=== PATIENT | male | born 1960 | race Caucasian/White ===

== ENCOUNTER 2019-06-05 10:50 | Emergency (ER) | payer OTHER ==
[2019-06-05 13:39] LABS: ANION GAP 13.6; CHLORIDE,CL 100 mmol/L (101-111); SODIUM,NA 139 mmol/L (135-145)
[2019-06-05] MEDS ORDERED: Iopamidol 612 MG/ML 100 ML Bottle IVPUSH ONE (13:41)
--- NOTE | 2019-06-05 14:30 | PCM.PRNOTE ---
- Free Text/Narrative Note: Consulted by ED to insert an IV on a patient who has had multiple attempts by RN. Upon entering room, pt is lying on a stretcher but in abd pain. A tourniquet was applied to the left forearm. The left wrist was cleaned with alcohol. Using a 18 gauge angiocath, an IV was inserted into the left anterior wrist on first attempt. Excellent blood return. IV flushes without difficulty. IV was covered with tegaderm and secured with tape. RN was notified. Date and Time: 06/05/19 [id number]
--- NOTE | 2019-06-05 15:37 | EDM.PDOC ---
Scribed by Morenita Robison 06/05/19 1534 for Chai Phillips PA ED HPI GENERAL MEDICAL PROBLEM - General Chief Complaint: Abdominal Pain Stated Complaint: GALLBLADDER Time Seen by Provider: 06/05/19 13:15 Source of Information: Reports: Patient, RN, RN Notes Reviewed History Limitations: Reports: No Limitations - History of Present Illness INITIAL COMMENTS - FREE TEXT/NARRATIVE: Patient presents to ER from [facility] with right lower lateral abdominal pain with no labs. Patient states his pain started yesterday after examination. He has had no fever. Patient has a history of non-Hodgkin's lymphoma. He has had no abdominal surgeries. Onset Date: 06/04/19 Duration: Getting Worse Location: Reports: Abdomen Quality: Reports: Ache Severity: Moderate Improves with: Reports: None Worsens with: Reports: None Associated Symptoms: Reports: No Other Symptoms - Related Data Allergies Allergy/AdvReac Type Severity Reaction Status Date / Time No Known Allergies Allergy Verified 06/05/19 12:41 Home Meds: Home Meds Cholecalciferol (Vitamin D3) [Vitamin D] 5,000 unit PO DAILY 06/05/19 [History] Fish Oil/[place]-3 Fatty Acids [Fish Oil] 1 each PO DAILY 06/05/19 [History] oxyCODONE 5 mg PO Q6HR PRN 06/05/19 [History] oxyCODONE ER [OxyCONTIN] 10 mg PO Q12H PRN 06/05/19 [History] Past Medical History Oncologic (Cancer) History: Reports: Non-Hodgkin's Lymphoma Social & Family History - Family History Family Medical History: Noncontributory - Tobacco Use Smoking Status *Q: Never Smoker - Caffeine Use Caffeine Use: Reports: Coffee - Recreational Drug Use Recreational Drug Use: No ED ROS GENERAL - Review of Systems Review Of Systems: ROS reveals no pertinent complaints other than HPI. ED EXAM, GI/ABD - Physical Exam Exam: See Below Exam Limited By: No Limitations General Appearance: Alert, WD/WN, No Apparent Distress Eyes: Bilateral: Normal Appearance Ears: Normal External Exam, Normal Canal, Hearing Grossly Normal, Normal TMs Nose: Normal Inspection, Normal Mucosa, No Blood Throat/Mouth: Normal Inspection, Normal Lips, Normal Teeth, Normal Gums, Normal Oropharynx, Normal Voice, No Airway Compromise Head: Atraumatic, Normocephalic Neck: Normal Inspection, Supple, Non-Tender, Full Range of Motion Respiratory/Chest: No Respiratory Distress, Lungs Clear, Normal Breath Sounds, No Accessory Muscle Use, Chest Non-Tender Cardiovascular: Normal Peripheral Pulses, Regular Rate, Rhythm, No Edema, No Gallop, No JVD, No Murmur, No Rub GI/Abdominal Exam: Other (right lateral lower abdominal pain with palpation. Negative psoas.) (Male) Exam: Deferred Rectal (Males) Exam: Deferred Back Exam: Normal Inspection, Full Range of Motion, NT Extremities: Normal Inspection, Normal Range of Motion, Non-Tender, Normal Capillary Refill, No Pedal Edema Neurological: Alert, Oriented, CN II-XII Intact, Normal Cognition, Normal Gait, Normal Reflexes, No Motor/Sensory Deficits Psychiatric: Normal Affect, Normal Mood Skin Exam: Warm, Dry, Intact, Normal Color, No Rash Lymphatic: No Adenopathy Course - Vital Signs Last Recorded V/S: Last Vital Signs Temp 36.6 C 06/05/19 12:15 Pulse 92 06/05/19 12:15 Resp 16 06/05/19 12:15 BP 161/99 H 06/05/19 12:15 Pulse Ox 99 06/05/19 12:15 - Orders/Labs/Meds Labs: Laboratory Tests 06/05/19 06/05/19 06/05/19 Range/Units 13:02 13:02 13:24 WBC 12.3 H (5.0-10.0) 10^3/uL RBC 4.74 (4.6-6.2) 10^6/uL Hgb 16.5 (14.0-18.0) g/dL Hct 48.7 (40.0-54.0) % MCV 102.7 H (80-100) fL MCH 34.8 H (27.0-34.0) pg MCHC 33.9 (33.0-35.0) g/dL Plt Count 233 (150-450) 10^3/uL Neut % (Auto) 68.4 (42.2-75.2) % Lymph % (Auto) 20.2 L (20.5-50.1) % Keith % (Auto) 10.5 H (2-8) % Eos % (Auto) 0.7 L (1.0-3.0) % Baso % (Auto) 0.2 (0.0-1.0) % Sodium 139 (135-145) mmol/L Potassium 3.6 (3.6-5.0) mmol/L Chloride 100 L (101-111) mmol/L Carbon Dioxide 29.0 (21.0-31.0) mmol/L Anion Gap 13.6 BUN 10 (7-18) mg/dL Creatinine 1.0 (0.6-1.3) mg/dL Est Cr Clr Drug Dosing TNP Estimated GFR (MDRD) > 60 BUN/Creatinine Ratio 10.00 Glucose 107 H (74-105) mg/dL Calcium 8.9 (8.4-10.2) mg/dl Total Bilirubin 1.0 (0.2-1.0) mg/dL AST 25 (10-42) IU/L ALT 25 (10-60) IU/L Alkaline Phosphatase 67 (42-121) IU/L Total Protein 6.9 (6.7-8.2) g/dl Albumin 4.3 (3.2-5.5) g/dl Globulin 2.6 Albumin/Globulin Ratio 1.65 Amylase 60 (28-100) U/L Lipase 31 (22-51) U/L Urine Color Yellow (YELLOW) Urine Appearance Clear (CLEAR) Urine pH 7.0 (5.0-9.0) Ur Specific Dexter 1.020 (1.005-1.030) Urine Protein Negative (NEGATIVE) Urine Glucose (UA) Negative (NEGATIVE) Urine Ketones Trace H (NEGATIVE) Urine Occult Blood Negative (NEGATIVE) Urine Nitrite Negative (NEGATIVE) Urine Bilirubin Negative (NEGATIVE) Urine Urobilinogen 0.2 (0.2-1.0) mg/dL Ur Leukocyte Esterase Negative (NEGATIVE) Meds: Medications Discontinued Medications Generic Name Dose Route Start Last Admin Trade Name Freq PRN Reason Stop Dose Admin Iopamidol 100 ml 06/05/19 13:41 06/05/19 14:06 Isovue-300 (61%) IVPUSH 06/05/19 13:42 100 ml ONETIME ONE Administration Departure - Departure Time of Disposition: 15:27 Disposition: DC/Tfer to Acute Hospital 02 Condition: Serious Clinical Impression: Acute appendicitis Qualifiers: Acute appendicitis type: with localized peritonitis Appendicitis gangrene presence: without gangrene Appendicitis perforation presence: without perforation Appendicitis abscess presence: without abscess Qualified Code(s): K35.30 - Acute appendicitis with localized peritonitis, without perforation or gangrene - Discharge Information *PRESCRIPTION DRUG MONITORING PROGRAM REVIEWED*: Not Applicable *COPY OF PRESCRIPTION DRUG MONITORING REPORT IN PATIENT [place]: Not Applicable Forms: ED Department Discharge Care Plan Goals: Discussed the patient's history, examination, lab and CT results with Dr. Upton. Dr. Upton accepted the patient for continued evaluation and treatment at [facility]. The patient's will drive him directly to [facility] in [place]. The patient agreed to not eat or drink anything between the ED and [facility]. I have read and agree with the documentation that has been completed regarding this visit. By signing this record, I attest that the documentation was completed in my physical presence and is an accurate record of the encounter.
== END 2019-06-05 15:36 ==
LOC: DL.ED 10:50
DX: K35.30 Acute appendicitis with localized peritonitis, without perforation or gangrene (principal); Z79.899 Other long term (current) drug therapy
CPT/HCPCS: 36415; 74177; 80053; 81003; 82150; 83690; 85025; 99285; Q9967

== ENCOUNTER 2020-12-21 15:03 | Emergency (ER) | payer OTHER ==
--- NOTE | 2020-12-21 15:17 | EDM.PDOC ---
ED HPI GENERAL MEDICAL PROBLEM - General Chief Complaint: Cardiovascular Problem Stated Complaint: HIGH BLOOD PRESSURE Time Seen by Provider: 12/21/20 15:16 Source of Information: Reports: Patient, Old Records, RN, RN Notes Reviewed History Limitations: Reports: No Limitations - History of Present Illness INITIAL COMMENTS - FREE TEXT/NARRATIVE: Pt presents to ER with c/o a high blood pressure problem. Pt states he has never been told he has high blood pressure until this past week when he had a colonoscopy. He f/u'd up in clinic and his pressure was still high, he thinks 170-180 over 100 to 110. Pt denies pain, chest pain, headache, visual changes, cough, shortness of breath, or edema. Onset: Unknown/Unsure Location: Reports: Generalized Quality: Reports: Other (Denies pain) Improves with: Reports: None Worsens with: Reports: None Associated Symptoms: Reports: No Other Symptoms - Related Data Allergies Allergy/AdvReac Type Severity Reaction Status Date / Time No Known Allergies Allergy Verified 06/05/19 12:41 Home Meds: Home Meds Cholecalciferol (Vitamin D3) [Vitamin D] 5,000 unit PO DAILY 06/05/19 [History] Fish Oil/[place]-3 Fatty Acids [Fish Oil] 1 each PO DAILY 06/05/19 [History] oxyCODONE 5 mg PO Q6HR PRN 06/05/19 [History] oxyCODONE ER [OxyCONTIN] 10 mg PO Q12H PRN 06/05/19 [History] Past Medical History Oncologic (Cancer) History: Reports: Non-Hodgkin's Lymphoma Social & Family History - Family History Family Medical History: No Pertinent Family History - Caffeine Use Caffeine Use: Reports: Coffee - Alcohol Use Alcohol Use History: Yes Alcohol Use Frequency: Daily, Socially - Living Situation & Occupation Occupation: Employed ED ROS GENERAL - Review of Systems Review Of Systems: Comprehensive ROS is negative, except as noted in HPI. ED EXAM, GENERAL - Physical Exam Exam: See Below Exam Limited By: No Limitations General Appearance: Alert, WD/WN, No Apparent Distress Eye Exam: Bilateral Eye: Normal Inspection Nose: Normal Inspection, No Blood Throat/Mouth: Normal Lips, Normal Voice, No Airway Compromise Head: Atraumatic, Normocephalic Neck: Normal Inspection, Supple, Non-Tender, Full Range of Motion. No: Carotid Bruit Respiratory/Chest: No Respiratory Distress, Lungs Clear, Normal Breath Sounds, No Accessory Muscle Use, Chest Non-Tender Cardiovascular: Normal Peripheral Pulses, Regular Rate, Rhythm, No Edema, No Gallop, No JVD, No Murmur, No Rub GI/Abdominal: Normal Bowel Sounds, Soft, Non-Tender Back Exam: Normal Inspection Extremities: Normal Inspection, Normal Range of Motion, Non-Tender, No Pedal Edema, Normal Capillary Refill Neurological: Alert, Oriented, No Motor/Sensory Deficits Psychiatric: Normal Affect, Normal Mood Skin Exam: Warm, Dry, Intact, Normal Color, No Rash #1 Interpretation EKG Date: 12/21/20 Time: 15:30 Rhythm: Other (SR) Rate (Beats/Min): 82 [place]: LAD-Left [place] Deviation P-Wave: Present QRS: Other (RSR' V1, LVH) ST-T: Normal QT: Prolonged Comparison: NA - No Prior EKG Course - Vital Signs Last Recorded V/S: Last Vital Signs Temp 98.8 F 12/21/20 15: Pulse 88 12/21/20 15:21 Resp 18 12/21/20 15:21 BP 178/112 H 12/21/20 15:21 Pulse Ox 100 12/21/20 15:21 - Orders/Labs/Meds Orders: Active Orders 24 hr Category Date Time Status EKG 12 Lead [EKG Documentation Completion] [RC] STAT Care 12/21/20 15:24 Active COMPREHENSIVE METABOLIC PN,CMP [CHEM] Stat Lab 12/21/20 15:39 Received D Dimer [D-DIMER QUANTITATIVE] [COAG] Stat Lab 12/21/20 15:39 Received MAGNESIUM [CHEM] Stat Lab 12/21/20 15:39 Received PHOSPHORUS [CHEM] Stat Lab 12/21/20 15:39 Received TROPONIN I [CHEM] Stat Lab 12/21/20 15:39 Received Labs: Laboratory Tests 12/21/20 Range/Units 15:39 WBC 8.6 (5.0-10.0) 10^3/uL RBC 4.12 L (4.6-6.2) 10^6/uL Hgb 14.5 D (14.0-18.0) g/dL Hct 41.1 (40.0-54.0) % MCV 99.8 (80-100) fL MCH 35.2 H (27.0-34.0) pg MCHC 35.3 H (33.0-35.0) g/dL Plt Count 250 (150-450) 10^3/uL Neut % (Auto) 35.1 L (42.2-75.2) % Lymph % (Auto) 49.9 (20.5-50.1) % [place] % (Auto) 13.1 H (2-8) % Eos % (Auto) 1.3 (1.0-3.0) % Baso % (Auto) 0.6 (0.0-1.0) % - Radiology Interpretation Free Text/Narrative:: XR Chest: no acute process, see Rad. report. Departure - Departure Time of Disposition: 16:18 Disposition: Home, Self-Care 01 Condition: Good Clinical Impression: Hypertension Qualifiers: Hypertension type: unspecified Qualified Code(s): I10 - Essential (primary) hypertension Instructions: Managing Your Hypertension Forms: ED Department Discharge Additional Instructions: Rx: Lisinopril 10mg Follow up in clinic with your primary doctor within the next one week. Monitor your blood pressure one daily at random times and keep a record of the reading for review by your doctor. Return to ER if your blood pressure top number is greater than 200, or the bottom number is greater than 110. Sepsis Event Note (ED) - Focused Exam Vital Signs: Vital Signs Temp Pulse Resp BP Pulse Ox 12/21/20 15:21 98.8 F 88 18 178/112 H 100 - My Orders Last 24 Hours: My Active Orders 12/21/20 15:24 EKG 12 Lead [EKG Documentation Completion] [RC] STAT 12/21/20 15:39 COMPREHENSIVE METABOLIC PN,CMP [CHEM] Stat D Dimer [D-DIMER QUANTITATIVE] [COAG] Stat MAGNESIUM [CHEM] Stat PHOSPHORUS [CHEM] Stat TROPONIN I [CHEM] Stat - Assessment/Plan Last 24 Hours: My Active Orders 12/21/20 15:24 EKG 12 Lead [EKG Documentation Completion] [RC] STAT 12/21/20 15:39 COMPREHENSIVE METABOLIC PN,CMP [CHEM] Stat D Dimer [D-DIMER QUANTITATIVE] [COAG] Stat MAGNESIUM [CHEM] Stat PHOSPHORUS [CHEM] Stat TROPONIN I [CHEM] Stat
--- NOTE | 2020-12-21 15:55 | CR ---
EXAMINATION: Chest 2V SEX: Male AGE: 60 years CLINICAL HISTORY: 60-year-old male with clinical hypertension. INTERPRETATION: Hypertrophic arthritic changes and mild kyphosis dorsal spine. Comparison CXR 19 April 2010. Normal cardiac silhouette. No pulmonary vascular congestion, cephalization of flow, alveolar edema or pleural effusion. No lung mass or hilar lymphadenopathy. No focal lobar consolidation (infiltrate or atelectasis). No peripheral "groundglass" interstitial lung densities. No pneumothorax or pneumomediastinum. CONCLUSION: No acute new cardiopulmonary abnormality since 2010 exam. CONCLUSION:
[2020-12-21 16:33] LABS: ANION GAP 13.1 mEq/L (7-13); CHLORIDE,CL 104 mmol/L (98-107); SODIUM,NA 143 mmol/L (136-145)
== END 2020-12-21 17:03 | disposition home or self-care (01) ==
LOC: DL.ED 15:03
DX: I10 Essential (primary) hypertension (principal)
CPT/HCPCS: 36415; 71046; 80053; 83735; 84100; 84484; 85025; 85379; 93005; 99284-25